=== PATIENT | female | born 1950 | race Two or more races ===

== ENCOUNTER 2025-01-18 08:59 | Outpatient (CLI) | payer OTHER | END 2025-01-18 09:01 | disposition home or self-care (01) | LOC: SONOGRAMA 08:59 | PROVIDERS: ATTEND Pathology Anatomic Pathology & Clinical Pathology | DX: D34 Benign neoplasm of thyroid gland (principal); E06.3 Autoimmune thyroiditis; E04.1 Nontoxic single thyroid nodule ==